=== PATIENT | male | born 1965 | race Hispanic/Latino ===

== ENCOUNTER 2025-08-05 06:54 | Observation (INO) | payer OTHER ==
[2025-08-02 09:57] VITALS: BP 138/73; PULSE 81; RESP 17; TEMP 97.4
--- NOTE | 2025-08-02 10:05 | NUR ---
RE: IS INITIAL IS INITIAL DONE BY RT JAMES DURING PREOP.
[2025-08-05] VITALS (33 sets, daily range): BP systolic 106–132; BP diastolic 52–84; PULSE 66–98; RESP 13–20; TEMP 97.3–98.6; O2SAT 94–98
[~2025-08-05] VITALS: Ht 162.6 cm; Wt 90.3 kg
[2025-08-05] MEDS: 0.9%NACL 1000ML 1,000 ML IV ONE ×2 (06:47→13:07)
[~2025-08-05 06:54] MED LIST: ASPI-1443 PO; ATOR40TA71 PO; EMPA25TA PO; LISI10TA24 PO
[2025-08-05] MEDS: TRANEXAMIC ACID 1000MG/10ML ONE (07:40)
[2025-08-05] MEDS ORDERED: MIDAZOLAM HCL 1 MG/ML 2ML VIAL ONE (09:22)
[2025-08-05] MEDS ORDERED: LIDOCAINE PF 100MG/5ML (2%) SYRINGE 5ML ONE (09:28)
[2025-08-05] MEDS ORDERED: GLYCOPYRROLATE 0.2 MG/ML 5 ML VIAL ONE ×2 (09:58→12:03)
[2025-08-05] MEDS ORDERED: HYDROcodone/APAP 5/325 1 TAB TABLET PO PRN (10:00)
[2025-08-05] MEDS ORDERED: FERROUS FUMARATE 324 MG TABLET PO PRN (10:00)
[2025-08-05] MEDS ORDERED: PoTASSium chloRIDE 20MEQ ER 20 MEQ ERTAB PO PRN (10:00)
[2025-08-05] MEDS ORDERED: PoTASSium chl 10% ELIXIR 20MEQ 20 MEQ/15 ML UDCUP PO PRN (10:00)
[2025-08-05] MEDS ORDERED: ALBUMIN (HUMAN) 5% 250 ML IV ONE (10:47)
[2025-08-05] MEDS ORDERED: NEOSTIGMINE METHYLSULFATE 1MG/ML IV ONE (12:03)
[2025-08-05] MEDS ORDERED: PROMETHAZINE HCL 25 MG/ML 1ML AMPULE IM PRN (13:00)
[2025-08-05] MEDS: 0.9%NACL 1000ML 1,000 ML IV SCH (13:07)
[2025-08-05] MEDS: CYCLOBENZAPRINE HCL 10 MG TABLET PO PRN (14:04)
[2025-08-05] MEDS: HYDROcodone/APAP 5/325 1 TAB TABLET PO PRN (14:04)
[2025-08-05] MEDS: HYDROcodone/APAP 5/325 1 TAB TABLET ONE (14:10)
[2025-08-05] MEDS: CYCLOBENZAPRINE HCL 10 MG TABLET ONE (14:10)
--- NOTE | 2025-08-05 15:05 | HMCIMG ---
STUDY: X-RAY OF THE RIGHT KNEE, 2 VIEWS HISTORY: Status post right total knee arthroplasty. TECHNIQUE: AP and lateral views of the right knee, including the patella, are submitted for interpretation. COMPARISON: None provided. FINDINGS: Bones and joints: Right total knee arthroplasty components are in situ with expected alignment and position. No periprosthetic or new fracture is identified, and there is no evidence of hardware loosening or osteolysis. Joint spaces at the prosthetic interfaces appear preserved. Soft tissues: Multiple small gas pockets are present within the soft tissues of the lateral distal thigh and in the suprapatellar recess, compatible with recent postoperative change. Minimal free fluid is present in the suprapatellar recess, consistent with a small joint effusion. No radiopaque foreign body is identified. IMPRESSION: * Right total knee arthroplasty with components in expected alignment and no radiographic evidence of periprosthetic fracture, loosening, or other hardware complication. * Multiple small soft tissue gas locules around the lateral distal thigh and suprapatellar recess with minimal suprapatellar joint effusion, in keeping with early postoperative change in the appropriate clinical context. /[place]
--- NOTE | 2025-08-05 16:02 | OP ---
Operative Note: DATE OF PROCEDURE: 08/05/25 PREOPERATIVE DIAGNOSIS: Right knee osteoarthritis. POSTOPERATIVE DIAGNOSIS: Right knee osteoarthritis. PROCEDURE PERFORMED: Right knee total knee arthroplasty. SURGEON: Norma Granados MD RUBBER WORKER: Julee Goldberg and Jah Pena. ANESTHESIA: General with adductor canal block. ANESTHESIA: KATINA Woodward. ESTIMATED BLOOD LOSS: 100cc. COMPLICATIONS: None. DRAINS: None. SPECIMENS REMOVED: resected bone. Not sent to pathology. IMPLANTS: [employer] II BCS size 6 Oxinium femur, size 5 tibial base plate, 32 mm patella, 10 mm polyethylene STATEMENT OF MEDICAL NECESSITY: The patient is a 60-year-old male who suffers from right knee osteoarthritis failing conservative management. After discussion of the risks, benefits, and alternatives with the patient, they voluntarily agreed to undergo the aforementioned procedure. DESCRIPTION OF PROCEDURE: Patient was properly identified in the preoperative holding area. Surgical site marking was verified and surgery consent reviewed. The patient was then taken to the operating room and placed in supine position on the OR table. After induction of general anesthesia, preoperative antibiotics were given, all bony prominences were well-padded, and a well padded tourniquet was applied but not inflated at this time. The right lower extremity was then prepped and draped in usual sterile fashion. Surgical time out was done verifying correct surgery, side, site, and location to be performed. We then began the procedure by exsanguinating the limb using an Esmarch and inflating the tourniquet to 350 mmHg. At this point, we made an anterior midline incision using a 10 blade, coming down sharply the level of the fascia. Skin flaps were elevated medially and laterally. We then obtained a clean 10 blade and performed a standard medial parapatellar arthrotomy. We excised the infrapatellar fat pad. We performed our soft tissue releases off of the tibia. We transected the ACL and removed the anterior portion of the medial & lateral meniscus. We then brought the knee into hyperflexion with the patella everted. We used our entry reamer to enter the femoral canal. We then placed our intramedullary cutting guide for our distal femoral cutting block. We then performed our distal femoral osteotomy ensuring appropriate rotation and removed the bony wafer. We then removed these pins and block and then used jig 2 to size the distal femur with the after mentioned size found. We then placed our 5-in-1 cutting block in 4 degrees of external rotation and took our 5 cuts ensuring to protect the patellar tendon and the collateral ligaments. We then removed the cutting block and our bony fragments using a curved osteotome. We then placed our PCL retractor subluxating the tibia anteriorly. Using an extra medullary tibial cutting guide, we hung the block for our proximal tibial cut taking 2 mm off the more diseased portion. Prior to pinning this block in place, we ensured appropriate varus/valgus alignment and posterior slope similar to the [place] slope of the patient's knee. We then performed our proximal t ibial osteotomy and removed the bony wafer using Bovie electrocautery to release any remaining soft tissue attachments. We then used our tibial sizing paddle and checked once more for varus & valgus alignment and found this to be appropriate. At this point, we pinned our tibial paddle in place. We then removed the PCL retractor and subluxated the tibia posteriorly while we placed our femoral trial component. We then finished preparing the notch with the reamer and box chisel. The notch portion of the trial femoral component was then placed. A posterior stabilized polyethylene, size 9 trial was placed. We performed a small medial release to help with soft tissue balancing and increase the polyethylene to a size 10. The knee was then taken through range of motion and found to have stable full range of motion. We then placed a bump under the ankle and everted the patella to perform our freehand cut of the undersurface the patella. We then sized our patella and reamed to the lug holes for this. We placed our trial patellar component and begin to take the knee through range of motion. The patella had appropriate tracking. At this point we began removing our trial components and punched the tibial keel prior to removing our tibial trial component. Final components were opened and cement was mixed on the back table while we injected local cocktail in the posterior capsule. We then thoroughly irrigated out the bone and dried the bony surfaces. We cemented our tibial component in place ensuring to remove excess cement and placed our trial polyethylene. We then cemented our femoral component in place once again taking time to ensure excess cement was removed leg was brought into full extension to help squeeze the excess cement from around the femoral component. We then brought the knee back in a flexion to remove this portion of the cement at this point we placed the ankle in a bump thoroughly irrigated off the patellar component and cemented our patellar component in standard fashion again removing excess cement. While we waited for the cement to cure, we thoroughly irrigated out the wound with normal saline. Once our cement had cured, we took the knee through a range of motion and found full and stable range of motion. We then elected to use the size 10 polyethylene and removed our trial polyethylene. We impacted our final polyethylene component in place in standard fashion and took the knee through a range of motion check once more. This was satisfactory so we began to repair the arthrotomy using #1 Vicryl in interrupted [id number] fashion. Subcutaneous tissue was repaired using 2-0 Vicryl. Running subcuticular 3-0 Monocryl stitch with Dermabond placed over this for the skin. We then applied a foam barrier dressing and a pressure dressing consisting of 4 x 4's fluffs and an Arun wrap. The tourniquet was then deflated. Patient was awakened from anesthesia, and they were taken to the recovery room in stable condition. NORMA GRANADOS MD Aug 05, 2025 16:02
--- NOTE | 2025-08-05 16:30 | NUR ---
USING URINAL PATIENT VOIDED 50ML OF YELLOW, URINE.
--- NOTE | 2025-08-05 16:50 | NUR ---
REPORT RECEIVED REPORT FROM RACHEL GALVEZ LVN. PT IN NO DISTRESS WATCHING TV. SDC ON AND RT KNEE DRESSING CLEAN AND DRY. PEDAL PULSE TO RT FOOT PALPABLE. WILL CONTINUE TO MONITOR. PT CALLED FOR INCENTIVE SPIROMETRY MACHINE.
--- NOTE | 2025-08-05 18:15 | NUR ---
report report given to shantell luna lvn. pt taken to room 427 in no distress. ice pack on rt knee at time. v/s stable before transfer. 122/65 85hr 14-16 rr 94% at room air
--- NOTE | 2025-08-05 18:29 | NUR ---
PATIENT ARRIVED TO UNIT PATIENT A&0X4 ON BED WITH ICE PACKS IN PLACE. PATIENT VERBALIZES PAIN /10. MEDICATION ADMINISTERED IN THE PACU AT 1800. WILL CONTINUE TO MONITOR. PATIENT CAP REFILL 3 SECS ON BILATERAL FINGERS AND TOES. PULSES STRONG AND PRESENT ON BLE. PATIENT WAS EVALUATED BY PT IN THE PACU. IS ASSESSMENT COMPLETED 1700ML. VITAL SIGNS STABLE: 131/78, 98% SP02 ON RA, PULSE 82. SCDS IN PLACE. CALL LIGHT WITHIN REACH. BED LOCKED AND LOW. PATIENT VERBALIZES NO FURTHER ASSISTANCE NEEDED OF NOW. PATIENT EDUCATED ON THE IMPORTANCE TO CALL NURSE WHEN FEELING PAIN. PATIENT VERBALIZED UNDERSTANDING.
[2025-08-06 00:30] VITALS: BP 117/68; PULSE 73; RESP 17
[2025-08-06] MEDS: HYDROcodone/APAP 5/325 1 TAB TABLET PO PRN (03:12)
[2025-08-06 03:55] LABS: NUCLEATED RED BLOOD CELLS 0.0 % (0.0-0.19); PLATELET COUNT (AUTO) 235.0 K/uL (130-400); RED BLOOD CELL COUNT(AUTO) 4.25 MIL/uL (4.50-6.20); RED CELL DISTRIBUTION WIDTH 13.4 % (11.0-15.5); WHITE BLOOD COUNT (AUTO) 11.5 K/uL (4.8-10.8)
[2025-08-06 04:00] VITALS: BP 131/70; PULSE 81; RESP 17; TEMP 98.3
[2025-08-06 04:05] LABS: CREATININE 0.7 mg/dL (0.5-1.3); GLOMERULAR FILTR. RATE CALC 105.0 mL/min (>90); GLUCOSE,RANDOM 114.0 mg/dL (70-105); SODIUM SERUM 145.0 mmol/L (136-145); UREA NITROGEN, BLOOD 8.0 mg/dL (7-18)
--- NOTE | 2025-08-06 08:10 | PN ---
Ortho postop day one. This morning patient is awake alert and oriented. He is already out of bed seated in a chair he is alternating extension and flexion of his operative site. The Arun bandage has been removed and the dressing is intact. Ice present to operative site. Gastrocnemius a soft nontender. Vital signs have remained stable. Afebrile. Laboratory results reviewed. Noted to have a drop in hemoglobin and hematocrit as expected after TKA. Patient is currently asymptomatic. We will continue to observe and treat per protocol as necessary. Operative findings discussed with the patient. Voiding on his own but yet to pass gas. Ambulated yesterday with physical therapy about 100 ft and is pending further physical therapy this morning. Reinforced incentive spirometry. Anticipated discharge goal is home health/PT. Assessment: Status post right total knee arthroplasty. Asymptomatic acute postoperative blood loss anemia. Plan: Continue with Dr. Granados's TKA protocol and discharge planning. Asymptomatic acute postoperative blood loss anemia addressed with the protocol as necessary Vitals/Labs Vital Signs Date Time Temp Pulse Resp B/P (MAP) Pulse Ox O2 Delivery O2 Flow Rate FiO2 08/06/25 04:00 98.2 81 17 131/70 97 Room Air 21 08/05/25 20:00 0 Laboratory Tests 08/06/25 03:46 Medications Current Medications Cefazolin Sodium 2 gm STK-MED ONCE .ROUTE Last administered on 08/05/25at 10:00; Start 08/05/25 at 06:47; Stop 08/05/25 at 06:47; Status DC Sodium Chloride 1,000 ml @ As Directed STK-MED ONCE IV; Start 08/05/25 at 06:47; Stop 08/05/25 at 06:47; Status DC Tranexamic Acid 1,000 mg STK-MED ONCE .ROUTE; Start 08/05/25 at 07:40; Stop 08/05/25 at 07:40; Status DC Midazolam HCl 2 mg STK-MED ONCE .ROUTE; Start 08/05/25 at 09:22; Stop 08/05/25 at 09:22; Status DC Lidocaine HCl 100 mg STK-MED ONCE .ROUTE; Start 08/05/25 at 09:28; Stop 08/05/25 at 09:28; Status DC Propofol 200 mg STK-MED ONCE IV; Start 08/05/25 at 09:28; Stop 08/05/25 at 09:29; Status DC Rocuronium [place] 50 mg STK-MED ONCE .ROUTE; Start 08/05/25 at 09:28; Stop 08/05/25 at 09:29; Status DC Fentanyl Citrate 100 mcg STK-MED ONCE .ROUTE; Start 08/05/25 at 09:29; Stop 08/05/25 at 09:29; Status DC Sodium Chloride 1,000 ml @ 100 mls/hr Q10H IV Last administered on 08/06/25at 02:58; Start 08/05/25 at 10:00; Stop 08/06/25 at 09:59 Polyethylene Glycol 17 gm DAILY PO; Start 08/06/25 at 09:00; Stop 09/05/25 at 08:59 Bisacodyl 10 mg DAILY PRN RC; Start 08/08/25 at 10:00; Stop 09/07/25 at 09:59 Ketorolac Tromethamine 15 mg Q6H PRN IV; Start 08/06/25 at 10:00; Stop 08/11/25 at 09:59 Ferrous Fumarate 324 mg DAILY PRN PO; Start 08/05/25 at 10:00; Stop 09/04/25 at 09:59 Ondansetron HCl 4 mg Q6H PRN IVP; Start 08/05/25 at 10:00; Stop 09/04/25 at 09:59 Calcium Carbonate 500 mg Q12H PRN PO; Start 08/05/25 at 10:00; Stop 09/04/25 at 09:59 Insulin Human Regular INSULIN SLIDING SCAL... ACHS SQ; Start 08/05/25 at 11:30; Stop 09/04/25 at 11:29 Cefazolin Sodium 2 gm Q8H IVP; Start 08/05/25 at 15:00; Stop 08/05/25 at 17:33; Status DC Cyclobenzaprine HCl 5 mg Q8H PRN PO Last administered on 08/05/25at 14:04; Start 08/05/25 at 10:00; Stop 09/04/25 at 09:59 Gabapentin 100 mg TID PO Last administered on 08/05/25at 20:30; Start 08/05/25 at 14:00; Stop 09/04/25 at 13:59 Aspirin 325 mg DAILY PO; Start 08/06/25 at 09:00; Stop 09/05/25 at 08:59 Ketorolac Tromethamine 15 mg Q8H IV Last administered on 08/05/25at 13:02; Start 08/05/25 at 10:00; Stop 08/05/25 at 18:42; Status DC Docusate Sodium 100 mg BID PO Last administered on 08/05/25at 20:30; Start 08/05/25 at 21:00; Stop 09/04/25 at 20:59 Potassium Chloride 100 ml @ 100 mls/hr AD PRN IV; Start 08/05/25 at 10:00; Stop 09/04/25 at 09:59 Potassium Chloride 20 meq AD PRN PO; Start 08/05/25 at 10:00; Stop 09/04/25 at 09:59 Potassium Chloride 20 meq AD PRN PO; Start 08/05/25 at 10:00; Stop 09/04/25 at 09:59 Tramadol HCl 50 mg Q6H PRN PO; Start 08/05/25 at 10:00; Stop 08/10/25 at 09:59 Acetaminophen/ Hydrocodone Bitart Q4H PRN PO; Start 08/05/25 at 10:00; Stop 08/05/25 at 09:45; Status DC Acetaminophen/ Hydrocodone Bitart 1 tab Q4H PRN PO Last administered on 08/05/25at 14:04; Start 08/05/25 at 10:00; Stop 08/10/25 at 09:59 Acetaminophen/ Hydrocodone Bitart 2 tab Q4H PRN PO Last administered on 08/06/25at 03:12; Start 08/05/25 at 10:00; Stop 08/10/25 at 09:59 Ketorolac Tromethamine 30 mg STK-MED ONCE .ROUTE Last administered on 08/05/25at 10:40; Start 08/05/25 at 09:51; Stop 08/05/25 at 09:52; Status DC Ropivacaine 150 mg STK-MED ONCE .ROUTE Last administered on 08/05/25at 10:40; Start 08/05/25 at 09:52; Stop 08/05/25 at 09:52; Status DC Glycopyrrolate 1 mg STK-MED ONCE .ROUTE; Start 08/05/25 at 09:58; Stop 08/05/25 at 09:58; Status DC Phenylephrine HCl 10 mg STK-MED ONCE IV; Start 08/05/25 at 10:10; Stop 08/05/25 at 10:11; Status DC Rocuronium [place] 50 mg STK-MED ONCE .ROUTE; Start 08/05/25 at 10:33; Stop 08/05/25 at 10:33; Status DC Albumin Human 250 ml @ As Directed STK-MED ONCE IV; Start 08/05/25 at 10:47; Stop 08/05/25 at 10:48; Status DC Ephedrine Sulfate 50 mg STK-MED ONCE .ROUTE; Start 08/05/25 at 10:56; Stop 08/05/25 at 10:56; Status DC Fentanyl Citrate 100 mcg STK-MED ONCE .ROUTE; Start 08/05/25 at 11:56; Stop 08/05/25 at 11:56; Status DC Glycopyrrolate 1 mg STK-MED ONCE .ROUTE; Start 08/05/25 at 12:03; Stop 08/05/25 at 12:03; Status DC Neostigmine Methylsulfate 10 mg STK-MED ONCE IV; Start 08/05/25 at 12:03; Stop 08/05/25 at 12:03; Status DC Ondansetron HCl 4 mg AD PRN IVP; Start 08/05/25 at 13:00; Stop 08/06/25 at 12:59 Metoclopramide HCl 10 mg AD PRN IVP; Start 08/05/25 at 13:00; Stop 08/06/25 at 12:59 Promethazine HCl 25 mg AD PRN IM; Start 08/05/25 at 13:00; Stop 08/06/25 at 12:59 Ketorolac Tromethamine 30 mg AD PRN IV; Start 08/05/25 at 13:00; Stop 08/06/25 at 12:59 Morphine Sulfate 2 mg AD PRN IVP; Start 08/05/25 at 13:00; Stop 08/06/25 at 12:59 Fentanyl Citrate 25 mcg Q5MIN PRN IVP; Start 08/05/25 at 13:00; Stop 08/06/25 at 12:59 Naloxone HCl 0.1 mg AD PRN IVP; Start 08/05/25 at 13:00; Stop 08/06/25 at 12:59 Ketorolac Tromethamine 15 mg STK-MED ONCE .ROUTE; Start 08/05/25 at 13:00; Stop 08/05/25 at 13:00; Status DC Sodium Chloride 1,000 ml @ As Directed STK-MED ONCE IV; Start 08/05/25 at 13:05; Stop 08/05/25 at 13:05; Status DC Gabapentin 100 mg STK-MED ONCE .ROUTE; Start 08/05/25 at 13:57; Stop 08/05/25 at 13:57; Status DC Acetaminophen/ Hydrocodone Bitart 1 tab STK-MED ONCE .ROUTE; Start 08/05/25 at 14:03; Stop 08/05/25 at 14:04; Status DC Cyclobenzaprine HCl 10 mg STK-MED ONCE .ROUTE; Start 08/05/25 at 14:03; Stop 08/05/25 at 14:04; Status DC Cefazolin Sodium 2 gm Q8H IVP Last administered on 08/06/25at 02:59; Start 08/05/25 at 18:00; Stop 08/06/25 at 02:01; Status DC Ketorolac Tromethamine 15 mg Q8H IV Last administered on 08/06/25at 05:22; Start 08/05/25 at 21:00; Stop 08/06/25 at 13:01 Atorvastatin Calcium 40 mg DAILY PO; Start 08/06/25 at 09:00; Stop 09/05/25 at 08:59 Empaglifozin 12.5 mg DAILY PO; Start 08/06/25 at 09:00; Stop 09/05/25 at 08:59 Lisinopril 10 mg DAILY PO; Start 08/06/25 at 09:00; Stop 09/05/25 at 08:59 LORETTA AGUIAR [facility] Aug 06, 2025 08:10
[2025-08-06 08:27] VITALS: BP 119/57; PULSE 88; RESP 18; TEMP 98.3
[2025-08-06] MEDS: ASPIRIN 325MG EC TAB PO SCH (08:44)
[2025-08-06] MEDS: LISINOPRIL 10 MG TABLET PO SCH (08:46)
[2025-08-06] MEDS: CALCIUM CARB 500MG PO PRN (08:46)
[2025-08-06] MEDS: EMPAGLIFLOZIN 25MG TABLET PO SCH (08:46)
[2025-08-06 09:01] VITALS: O2SAT 97
[2025-08-06 11:57] VITALS: BP 110/69; PULSE 86; RESP 18; TEMP 98.2
--- NOTE | 2025-08-06 12:00 | NUR ---
ORTHO COORDINATOR: TEACHING REGARDING DVT AND PNEUMONIA PREVENTION, PAIN EXPECTATIONS AND PAIN MANAGEMENT. PATIENT UP TO CHAIR, FAMILY AT BEDSIDE. PATIENT VERBALIZED PROPER FREQUENCY OF USE FOR INCENTIVE SPIROMETER. ICE TO RIGHT KNEE. SURGICAL DRESSING CLEAN, DRY AND INTACT. B SCD SLEEVES AND MACHINE IN ROOM. PAIN MANAGEMENT STRATEGY REVIEWED. NUMERIC PAIN SCALE REVIEWED. PRN AND SCHEDULED PAIN MEDICATIONS REVIEWED. PATIENT INSTRUCTED TO CALL OUT FOR PAIN MEDICATION AND PROVIDE A NUMERIC PAIN VALUE AND TYPE OF PAIN. CURRENTLY, PAIN CONTROLLED. PATIENT INTENDS TO DISCHARGE HOME WITH HOME HEALTH PHYSICAL THERAPY, PROCESS REVIEWED. PATIENT ENCOURAGED TO CONTINUE PREMEDICATING PRIOR TO PHYSICAL THERAPY AND PERIODS OF HIGH ACTIVITY, TO CONTINUE USE OF INCENTIVE SPIROMETER UNTIL PRESURGERY ACTIVITY LEVEL REACHED, TO CONTINUE FOOT FLEXION AND EXTENSION EXERCISES, TO CONTINUE HYDRATING AND INCREASING DISTANCE AMBULATING. PATIENT AND FAMILY VERBALIZED UNDERSTANDING TO ALL INSTRUCTIONS. NO ADDITIONAL QUESTIONS OR CONCERNS.
[2025-08-06] MEDS ORDERED: PANT40TA54 PO (13:24)
[2025-08-06] MEDS ORDERED: ASPI-891 PO (13:24)
[2025-08-06] MEDS ORDERED: GABA100C PO (13:24)
[2025-08-06] MEDS ORDERED: HYDR-4060 PO (13:24)
[2025-08-06] MEDS ORDERED: CYCL-309 PO (13:24)
[2025-08-06] MEDS ORDERED: CHOL2000 PO (13:24)
[2025-08-06] MEDS ORDERED: DOCU-116 PO (13:24)
--- NOTE | 2025-08-06 13:52 | NUR ---
PATIENT VERBALIZES ATTEMPTED HAVING A BM. PATIENT VERBALIZES HE WAS ONLY ABLE TO PASS GAS.
[2025-08-06] MEDS: LACTULOSE 20 GM/30 ML UDCUP PO ONE (14:47)
[2025-08-06 16:28] VITALS: BP 139/73; PULSE 88; RESP 18; TEMP 98
--- NOTE | 2025-08-06 16:30 | NUR ---
PATIENT DISCHARGED. PATIENT DISCHARGED. PATIENT EDUCATED ON THE IMPORTANCE OF FOLLOWING PLAN OF CARE, INCISION CARE, FOLLOW UP APPOINTMENT, AND HOME MEDICATIONS. PATIENT VERBALIZES UNDERSTANDING. FOLLOW UP APPOINTMENT SCHEDULED AND PATIENT MADE AWARE. PATIENT VERBALIZES UNDERSTANDING. IV REMOVED WITHOUT COMPLICATIONS PATIENT TOLERATED WELL.
--- NOTE | 2025-08-06 18:00 | NUR ---
PATIENT DISCHARGED. PATIENT TRANSPORTED TO PRIVATE CAR VIA WHEELCHAIR BY [employer]. NO S/S OF DISTRESS.
--- NOTE | 2025-08-06 18:06 | NUR ---
DC PLAN PATIENT LIVES WITH SPOUSE. INDEPENDENT ABLE TO PERFORM ADL'S. PATIENT HAS NO DME OR SERVICES. FEELS SAFE TO RETURN HOME. [place] FOR ANY IN NETWORK FOR HH AND DME. [address]ESS [address] [place] [id number]. PACKET MADE AND SENT TO [place].
--- NOTE | 2025-08-06 18:10 | NUR ---
[facility] [phone] FAX [phone]. CM CALLED REP SAID THEY WILL TAKE REPORT STILL PENDING VOUCHER. [facility] CALLED [facility] SAID THEY SENT VOUCHER TO FAX. CM GAVE INFO TO PATRICIAS TO FAMILY FOR THEM TO GO [employer] WALK[employer].
== END 2025-08-06 18:00 | disposition home health service (06) ==
LOC: DAH 06:54 → DAHIP 09:34 → 4DH 18:30
PROVIDERS: ADMIT Student in an Organized Health Care Education/Training Program; ATTEND Student in an Organized Health Care Education/Training Program
DX: M17.11 Unilateral primary osteoarthritis, right knee (principal); M25.561 Pain in right knee; D62 Acute posthemorrhagic anemia; I10 Essential (primary) hypertension; E66.9 Obesity, unspecified; Z68.34 Body mass index [BMI] 34.0-34.9, adult; Z79.899 Other long term (current) drug therapy; Z98.890 Other specified postprocedural states
CPT/HCPCS: 84134; 86140; 36415 ×2; 87641; 27447; 96374; 96376 ×2; 96375; 82948 ×6; 73560; 97161; 97116 ×3; 80048; 85027; 97530 ×2; G0378 ×32; A4663; P9045; J3010 ×2; J3490 ×6; J7030 ×2; J2003; J2250; J2704; J1885 ×4; J2710; J2795; J2371; J0690 ×3; C1713 ×2; A4649 ×2; A4930; C1776; A6255; A5120; A4215; A4223 ×2; A4213; A4222; A4221; A4216